=== PATIENT | male | born 1990 | race American Indian/Alaskan Native ===

== ENCOUNTER 2017-04-16 22:19 | Emergency (ER) | payer SELFPAY ==
[2017-04-16 22:42] VITALS: BP 122/75
== END 2017-04-16 23:00 | disposition left against medical advice (07) ==
LOC: ED 22:19
DX: J11.1 Influenza due to unidentified influenza virus with other respiratory manifestations (principal); R73.9 Hyperglycemia, unspecified
CPT/HCPCS: 82962

== ENCOUNTER 2017-05-17 09:32 | Inpatient (IN) | payer OTHER ==
[2017-05-17 10:18] LABS: Basophils % (Auto) 0.3 % (0.0-1.8); Eosinophils % (Auto) 0.1 % (0.0-4.3); Hematocrit 43.5 % (35.5-45.6); Hemoglobin 14.5 gm/dl (11.8-15.2); Lymphocytes # (Auto) 0.7 K/mm3 (1.2-5.4); Lymphocytes % (Auto) 5.8 % (13.4-35.0); Mean Corpuscular HGB Conc 33 % (32-34); Mean Corpuscular Hemoglobin 32 pg (28-32); Mean Corpuscular Volume 95 fl (84-94); Monocytes # (Auto) 0.6 K/mm3 (0.0-0.8); Monocytes % (Auto) 5.8 % (0.0-7.3); Platelet Count 228 K/mm3 (140-440); Red Blood Count 4.59 M/mm3 (3.65-5.03)
[2017-05-17 10:24] LABS: Alanine Aminotransferase 16 units/L (7-56); Albumin 5.2 g/dL (3.9-5); BUN/Creatinine Ratio 14; Blood Urea Nitrogen 10 mg/dL (9-20); Calcium 9.8 mg/dL (8.4-10.2); Hemolysis Index 8
[2017-05-17] MEDS ORDERED: NACL 0.9% 1000 ML 1,000 ML IV ONE ×2 (13:02→14:58)
[2017-05-17] MEDS ORDERED: ZOFRAN IV ONE (13:02)
[2017-05-17] MEDS ORDERED: TORADOL IV ONE (13:02)
--- NOTE | 2017-05-17 13:02 | Emergency Department Report ---
Blank Doc - Documentation Documentation: H and is a 27-year-old -French male whose presenting with nausea vomiting and abdominal pain. Patient snorted cocaine last night stated pain started after that. Patient used cocaine in the past has not had any pain like this. Patient has vomited numerous times. Patient states that the pain is sharp center abdomen with no radiation. Patient is lying on the floor during exam. Patient states 10 out of 10 in severity. Brief physical exam patient is very tender in the abdomen with guarding. Patient also has a blood pressure 100 systolic. Patient removed to the made for IV hydration and CT scan.
[2017-05-17] MEDS ORDERED: PEPCID IV ONE (13:03)
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
--- NOTE | 2017-05-17 16:41 | History and Physical Report ---
Medications and Allergies Allergies Allergy/AdvReac Type Severity Reaction Status Date / Time No Known Allergies Allergy Verified 07/08/13 04:49 Home Medications Medication Instructions Recorded Confirmed Last Taken Type Famotidine [Pepcid] 40 mg PO DAILY #14 tablet 07/08/13 Unknown Rx Hyoscyamine Subl [Levsin Sl 0.125 0.125 mg SL Q4HR PRN #16 tablet 07/08/13 Unknown Rx TAB] Magnesium Citrate [Citrate of 300 ml PO ONCE #1 solution 07/08/13 Unknown Rx Magnesia] Ondansetron [Zofran Odt] 8 mg PO TID #12 tab.rapdis 07/08/13 Unknown Rx HYDROcodone/ACETAMINOPHEN [[place] 1 each PO Q6HR PRN #20 tablet 09/17/14 Unknown Rx 7.5-325 mg TAB] Ibuprofen [Motrin] 800 mg PO Q8H PRN #30 tablet 09/17/14 Unknown Rx Doxycycline Hyclate [Doxycycline 100 mg PO BID #20 tablet 10/12/15 Unknown Rx Hyclate TAB] HYDROcodone/APAP 7.5-325 [[place] 1 each PO Q8HR PRN #14 tablet 10/12/15 Unknown Rx 7.5/325] Sulfamethoxazole/Trimethoprim 1 each PO BID #20 tablet 10/12/15 Unknown Rx [Bactrim DS TAB] Exam - Constitutional Vitals: Temp Pulse Resp BP Pulse Ox 98 F 48 L 16 143/75 99 05/17/17 15:50 05/17/17 15:48 05/17/17 15:51 05/17/17 15:48 05/17/17 15:51 Results - Labs CBC & Chem 7: 05/17/17 09:51 05/17/17 09:51 Labs: Abnormal lab results 05/17/17 05/17/17 05/17/17 Range/Units 09:51 09:51 09:52 WBC 11.2 H (4.5-11.0) K/mm3 MCV 95 H (84-94) fl Lymph % (Auto) 5.8 L (13.4-35.0) % Lymph # 0.7 L (1.2-5.4) K/mm3 Seg Neutrophils % 88.0 H (40.0-70.0) % Seg Neutrophils # 9.9 H (1.8-7.7) K/mm3 Creatinine 0.7 L (0.8-1.5) mg/dL Glucose 163 H (75-100) mg/dL POC Glucose 157 H (70-105) Lactic Acid (0.7-2.0) mmol/L Albumin 5.2 H (3.9-5) g/dL 05/17/17 05/17/17 Range/Units 13:17 16:03 WBC (4.5-11.0) K/mm3 MCV (84-94) fl Lymph % (Auto) (13.4-35.0) % Lymph # (1.2-5.4) K/mm3 Seg Neutrophils % (40.0-70.0) % Seg Neutrophils # (1.8-7.7) K/mm3 Creatinine (0.8-1.5) mg/dL Glucose (75-100) mg/dL POC Glucose (70-105) Lactic Acid 4.80 H* 3.40 H* (0.7-2.0) mmol/L Albumin (3.9-5) g/dL
--- NOTE | 2017-05-17 16:42 | History and Physical Report ---
History of Present Illness Chief complaint: my stomach hurts History of present illness: 27 YO Male with DM, Malnutrition, Nicotine Dependence presents to ED for evaluation. Pt states that he has experienced abdominal pain for the past 1 day , with worsening symptoms over the past 4 hours. Pt states that pain is 10/10, sharp, located in the middle of the abdomen, just above the bellybutton. Pain is associated with nausea and vomiting that began around midnight. Pt acknowledges onset of abdominal pain after ingestion of cocaine. Pt states that he engages in occasional cocaine use, but has never had symptoms prior to this. Pt denies fever, chills, CP, Palpitations, NVD, BRBPR, recent ill contacts, loose stools, shortness of breath, leg swelling, hematuria, urgency, or frequency. Past History Past Medical History: diabetes, other (malnutrition) Past Surgical History: No surgical history, Other (reviewed) Social history: smoking, other (cocaine dependence) Family history: hypertension Medications and Allergies Allergies Allergy/AdvReac Type Severity Reaction Status Date / Time No Known Allergies Allergy Verified 07/08/13 04:49 Home Medications Medication Instructions Recorded Confirmed Last Taken Type No Known Home Medications [No 05/17/17 05/17/17 Unknown History Reported Home Medications] Review of Systems Constitutional: weight loss, no weight gain, no fever, no chills, no sweats Ears, nose, mouth and throat: no ear pain, no ear discharge, no tinnitis, no decreased hearing, no nose pain, no nasal congestion Cardiovascular: no chest pain, no orthopnea, no palpitations, no rapid/ irregular heart beat, no syncope Respiratory: no cough, no cough with sputum, no excessive sputum, no hemoptysis , no shortness of breath Gastrointestinal: abdominal pain, nausea, vomiting, no constipation, no change in bowel habits, no hematemesis, no coffee ground emesis, no BRBPR, no melena, no hematochezia, no loss of appetite, no early satiety Genitourinary Male: no hematuria, no flank pain, no discharge, no urinary frequency, no urinary hesitancy Rectal: no pain, no incontinence, no bleeding Musculoskeletal: no neck stiffness, no neck pain, no shooting arm pain, no arm numbness/tingling, no low back pain Integumentary: no rash, no pruritis, no redness, no sores, no wounds Neurological: no transient paralysis, no paralysis, no weakness, no parathesias , no numbness, no tingling, no seizures Psychiatric: no anxiety, no memory loss, no change in sleep habits, no sleep disturbances, no insomnia, no hypersomnia, no change in appetite Endocrine: no cold intolerance, no heat intolerance, no polyphagia, no excessive thirst, no polydipsia, no polyuria, no nocturia Hematologic/Lymphatic: no easy bruising, no easy bleeding Allergic/Immunologic: no urticaria, no allergic rhinitis, no wheezing Exam - Constitutional Vitals: Temp Pulse Resp BP Pulse Ox 98 F 48 L 16 143/75 99 05/17/17 15:50 05/17/17 15:48 05/17/17 15:51 05/17/17 15:48 05/17/17 15:51 General appearance: Present: mild distress, cachectic, disheveled - EENT Eyes: Present: PERRL ENT: hearing intact, clear oral mucosa - Neck Neck: Present: supple, normal ROM - Respiratory Respiratory effort: normal Respiratory: bilateral: CTA - Cardiovascular Heart Sounds: Present: S1 & S2. Absent: rub, click - Extremities Extremities: pulses symmetrical, No edema Peripheral Pulses: within normal limits - Abdominal General gastrointestinal: Present: soft, tender, non-distended, normal bowel sounds Localized gastrointestinal: tender: diffuse Male genitourinary: Present: normal - Integumentary Integumentary: Present: clear, warm, dry - Musculoskeletal Musculoskeletal: gait normal, strength equal bilaterally - Psychiatric Psychiatric: appropriate mood/affect, intact judgment & insight - Neurologic Neurologic: CNII-XII intact, moves all extremities Results - Labs CBC & Chem 7: 05/17/17 09:51 05/17/17 09:51 Labs: Abnormal lab results 05/17/17 05/17/17 05/17/17 Range/Units 09:51 09:51 09:52 WBC 11.2 H (4.5-11.0) K/mm3 MCV 95 H (84-94) fl Lymph % (Auto) 5.8 L (13.4-35.0) % Lymph # 0.7 L (1.2-5.4) K/mm3 Seg Neutrophils % 88.0 H (40.0-70.0) % Seg Neutrophils # 9.9 H (1.8-7.7) K/mm3 Creatinine 0.7 L (0.8-1.5) mg/dL Glucose 163 H (75-100) mg/dL POC Glucose 157 H (70-105) Lactic Acid (0.7-2.0) mmol/L Albumin 5.2 H (3.9-5) g/dL 05/17/17 05/17/17 Range/Units 13:17 16:03 WBC (4.5-11.0) K/mm3 MCV (84-94) fl Lymph % (Auto) (13.4-35.0) % Lymph # (1.2-5.4) K/mm3 Seg Neutrophils % (40.0-70.0) % Seg Neutrophils # (1.8-7.7) K/mm3 Creatinine (0.8-1.5) mg/dL Glucose (75-100) mg/dL POC Glucose (70-105) Lactic Acid 4.80 H* 3.40 H* (0.7-2.0) mmol/L Albumin (3.9-5) g/dL Assessment and Plan - Patient Problems (1) Mesenteric ischemia Current Visit: Yes Status: Acute Plan to address problem: Serial abdominal exam, IVF resuscitation, serial lactic acid, kub in am to evaluate for free air, repeat CT abdomen pelvis if worsening symptoms, surgery consulted, (2) Cocaine abuse Current Visit: Yes Status: Acute Plan to address problem: Pt counseled, (3) Lactic acidosis Current Visit: Yes Status: Acute Plan to address problem: IVF resuscitation, supportive care, repeat lactic acid level (4) DVT prophylaxis Current Visit: Yes Status: Acute
[2017-05-17] MEDS ORDERED: TYLENOL PO PRN (16:59)
[2017-05-17] MEDS ORDERED: PROVENTIL IH PRN (16:59)
[2017-05-17] MEDS ORDERED: DILAUDID IV ONE ×2 (21:10→23:46)
[2017-05-17] MEDS ORDERED: NACL 0.9% 1000 ML 2,000 ML IV ONE (21:13)
--- NOTE | 2017-05-17 21:26 | Consultation ---
History of Present Illness Consult date: 05/17/17 Reason for consult: abdominal pain Requesting physician: JOSE ANTONIO IGLESIAS Chief complaint: abdominal pain - History of present illness History of present illness: 27-year-old male presents to the emergency department with an acute onset of generalized abdominal pain that began about 10 hours ago after consuming cocaine. He reports that the main pain is around the umbilicus. He has had nausea and vomiting. Does not think that he has had any hematemesis. Had a bowel movement before he came in. He did not have blood or appear black. Nothing similar to this has happened before in the past. Denies feeling bloated. Would like some ice chips. Feels as though he may have had a fever at home but did not actually check his temperature. Past History Past Medical History: diabetes, other (malnutrition) Past Surgical History: No surgical history, Other (reviewed) Social history: smoking, other (cocaine dependence) Family history: no significant family history, hypertension Medications and Allergies Allergies Allergy/AdvReac Type Severity Reaction Status Date / Time No Known Allergies Allergy Verified 07/08/13 04:49 Home Medications Medication Instructions Recorded Confirmed Last Taken Type No Known Home Medications [No 05/17/17 05/17/17 Unknown History Reported Home Medications] Active Meds: Active Medications Acetaminophen (Tylenol) 650 mg PO Q4H PRN PRN Reason: Pain MILD(1-3)/Fever >100.5/SUAZO Albuterol (Proventil) 2.5 mg IH Q4HRT PRN PRN Reason: Shortness Of Breath Doxycycline Hyclate (Vibramycin) 100 mg PO BID REGINA Famotidine (Pepcid) 40 mg PO DAILY REGINA Sodium Chloride (Nacl 0.45% 1000 Ml) 1,000 mls @ 125 mls/hr IV DIRECT REGINA Ondansetron HCl (Zofran) 4 mg IV Q8H PRN PRN Reason: N/V unrelieved by Reglan Review of Systems - Constitutional fever, chills, no sweats, no night sweats - Cardiovascular no chest pain - Respiratory no shortness of breath - Gastrointestinal abdominal pain, nausea, vomiting, no diarrhea, no constipation, no hematemesis, no coffee ground emesis, no BRBPR, no melena, no hematochezia, no dyspepsia/ bloating - Genitourinary no dysuria - Integumentary no rash Exam Vital Signs Temp Pulse Resp BP Pulse Ox 96.1 F L 54 L 20 100/70 98 05/17/17 09:42 05/17/17 09:42 05/17/17 09:42 05/17/17 09:42 05/17/17 09:42 Narrative exam: Patient is awake and alert. Communicates respectfully and appropriately. Appears in obvious pain. Movements are slow. - General physical appearance Positive: moderate distress, severe pain - Eyes Positive: normal occular movement - ENT Positive: other (dry oral mucosa) - Neck Positive: trachea midline - Respiratory Positive: normal expansion, normal respiratory effort, clear to auscultation - Cardiovascular Rhythm: regular - Abdomen Abdomen: Present: soft, bowel sounds normal, guarding (voluntary), other ( patient reports abdominal pain that is referred to the umbilicus. In the periphery, there is no pain where I palpate. He feels the pain at the umbilicus whenever I palpate his abdomen. Reports increased pain with pelvic shake.). Absent: distended, rigid, surgical scars Hernia: none - Integumentary no rash - Neurologic Neurologic: alert and oriented to time, place and person, motor strength and sensation are grossly intact - Psychiatric Psychiatric: appropriate mood/affect, intact judgment & insight, memory intact, cooperative Results - Labs 05/17/17 09:51 05/17/17 09:51 Abnormal lab results 05/17/17 05/17/17 05/17/17 Range/Units 09:51 09:51 09:52 WBC 11.2 H (4.5-11.0) K/mm3 MCV 95 H (84-94) fl Lymph % (Auto) 5.8 L (13.4-35.0) % Lymph # 0.7 L (1.2-5.4) K/mm3 Seg Neutrophils % 88.0 H (40.0-70.0) % Seg Neutrophils # 9.9 H (1.8-7.7) K/mm3 Creatinine 0.7 L (0.8-1.5) mg/dL Glucose 163 H (75-100) mg/dL POC Glucose 157 H (70-105) Lactic Acid (0.7-2.0) mmol/L Albumin 5.2 H (3.9-5) g/dL 05/17/17 05/17/17 Range/Units 13:17 16:03 WBC (4.5-11.0) K/mm3 MCV (84-94) fl Lymph % (Auto) (13.4-35.0) % Lymph # (1.2-5.4) K/mm3 Seg Neutrophils % (40.0-70.0) % Seg Neutrophils # (1.8-7.7) K/mm3 Creatinine (0.8-1.5) mg/dL Glucose (75-100) mg/dL POC Glucose (70-105) Lactic Acid 4.80 H* 3.40 H* (0.7-2.0) mmol/L Albumin (3.9-5) g/dL Diabetes panel 05/17/17 Range/Units 09:51 Sodium 141 (137-145) mmol/L Potassium 3.8 (3.6-5.0) mmol/L Chloride 100.2 (98-107) mmol/L Carbon Dioxide 27 (22-30) mmol/L BUN 10 (9-20) mg/dL Creatinine 0.7 L (0.8-1.5) mg/dL Glucose 163 H (75-100) mg/dL Calcium 9.8 (8.4-10.2) mg/dL AST 23 (5-40) units/L ALT 16 (7-56) units/L Alkaline Phosphatase 115 (35-129) units/L Total Protein 8.2 (6.3-8.2) g/dL Albumin 5.2 H (3.9-5) g/dL Calcium panel 05/17/17 Range/Units 09:51 Calcium 9.8 (8.4-10.2) mg/dL Albumin 5.2 H (3.9-5) g/dL Pituitary panel 05/17/17 Range/Units 09:51 Sodium 141 (137-145) mmol/L Potassium 3.8 (3.6-5.0) mmol/L Chloride 100.2 (98-107) mmol/L Carbon Dioxide 27 (22-30) mmol/L BUN 10 (9-20) mg/dL Creatinine 0.7 L (0.8-1.5) mg/dL Glucose 163 H (75-100) mg/dL Calcium 9.8 (8.4-10.2) mg/dL Adrenal panel 05/17/17 Range/Units 09:51 Sodium 141 (137-145) mmol/L Potassium 3.8 (3.6-5.0) mmol/L Chloride 100.2 (98-107) mmol/L Carbon Dioxide 27 (22-30) mmol/L BUN 10 (9-20) mg/dL Creatinine 0.7 L (0.8-1.5) mg/dL Glucose 163 H (75-100) mg/dL Calcium 9.8 (8.4-10.2) mg/dL Total Bilirubin 0.50 (0.1-1.2) mg/dL AST 23 (5-40) units/L ALT 16 (7-56) units/L Alkaline Phosphatase 115 (35-129) units/L Total Protein 8.2 (6.3-8.2) g/dL Albumin 5.2 H (3.9-5) g/dL - Imaging CT scan - abdomen: report reviewed, image reviewed Assessment and Plan - Patient Problems (1) Mesenteric ischemia Current Visit: Yes Status: Acute Plan to address problem: Patient appears to be hemodynamically stable at this time. I think it is quite likely he is suffering symptoms of mild mesenteric ischemia secondary to dehydration and vasospasm from the cocaine. His abdomen is soft with good bowel sounds. At this time I would recommend aggressive resuscitation. I've ordered another 2 L of normal saline. Serial lactate should be monitored. A new set of labs has been ordered for the morning. I have ordered one dose of pain medicine. Further pain medicine will be deferred to primary team. His lactate is already showing signs of improvement. As long as this continues , I would continue conservative care. If his hemodynamics or labs are getting worse, I have told him then we will move forward with an exploratory laparotomy. He understands. Will follow along. Thank you for this consult. Time=45min (2) Lactic acidosis Current Visit: Yes Status: Acute Plan to address problem: This is starting to improve. We need to be aggressive with resuscitation. I have ordered 2 more liters of normal saline. I've also ordered serial lactate' s.
[2017-05-18] MEDS: VIBRAMYCIN PO SCH ×3 (00:04→23:01)
[2017-05-18] MEDS: ZOFRAN IV PRN ×2 (00:18→11:17)
[2017-05-18] MEDS: NACL 0.45% 1000 ML 1,000 ML IV SCH ×2 (02:22→10:50)
[2017-05-18 06:26] LABS: Basophils # (Auto) 0.1 K/mm3 (0.0-0.1); Basophils % (Auto) 1.7 % (0.0-1.8); Eosinophils % (Auto) 0.1 % (0.0-4.3); Hematocrit 38.5 % (35.5-45.6); Hemoglobin 12.7 gm/dl (11.8-15.2); Lymphocytes # (Auto) 0.8 K/mm3 (1.2-5.4); Lymphocytes % (Auto) 11.7 % (13.4-35.0); Mean Corpuscular HGB Conc 33 % (32-34); Mean Corpuscular Hemoglobin 31 pg (28-32); Mean Corpuscular Volume 95 fl (84-94); Monocytes # (Auto) 0.5 K/mm3 (0.0-0.8); Monocytes % (Auto) 7.2 % (0.0-7.3); Platelet Count 187 K/mm3 (140-440); Red Blood Count 4.04 M/mm3 (3.65-5.03); Red Cell Distribution Width 13.9 % (13.2-15.2)
[2017-05-18 06:57] LABS: Alanine Aminotransferase 14 units/L (7-56); BUN/Creatinine Ratio 20; Blood Urea Nitrogen 10 mg/dL (9-20); Calcium 8.7 mg/dL (8.4-10.2); Hemolysis Index 3
--- NOTE | 2017-05-18 09:10 | XRay Report ---
Abdomen 2 views: History: Abdominal pain. Findings: Multiple air fluid levels are noted in the abdomen. No significant bowel distention. No radiopaque calculus or abnormal calcification. No free intraperitoneal air. Impression: Probable ileus or incomplete small bowel obstruction.
[2017-05-18] MEDS: PEPCID PO SCH (09:23)
[2017-05-18] MEDS ORDERED: NON-FORMULARY (Famotidine [Pepcid] 40 MG) PO SCH (10:00)
--- NOTE | 2017-05-18 12:32 | Progress Note ---
Assessment and Plan - Patient Problems (1) Mesenteric ischemia Current Visit: Yes Status: Acute Plan to address problem: Patient is much improved today. Labs have normalized. Exam is much improved. I do not have any worries of bowel compromise at this time. Advance to clear liquid diet. Thereafter, advanced guide as tolerated. No need to continue serial lactate checks. Explained the process by which he had severe abdominal pain. Explained that it was related to the cocaine use. I encouraged him to ambulate today. Will follow along. Please call if there are any questions Time=15min (2) Lactic acidosis Current Visit: Yes Status: Acute Plan to address problem: Resolved with fluid resuscitation. No need to continue following serial lactate 's. Subjective Date of service: 05/18/17 Patient Reports: Positive: no new complaints, feels better, still having pain ( pain is less than last night.) Objective Vital Signs - 12hr 05/18/17 05/18/17 04:16 08:00 Temperature 98.1 F 97.8 F Pulse Rate 55 L 54 L Respiratory 24 14 Rate Blood Pressure 109/65 100/48 O2 Sat by Pulse 100 96 Oximetry - General physical appearance no distress - Eyes normal occular movement - Respiratory normal expansion, normal respiratory effort - Abdomen soft, tender (much less tender than last night.), bowel sounds normal, not distended, not rebound, not guarding, not rigid - Integumentary no rash - Psychiatric oriented to time, oriented to person, oriented to place, speech is normal, memory intact - Labs 05/18/17 05:50 05/18/17 05:50 Diabetes panel 05/18/17 Range/Units 05:50 Sodium 142 (137-145) mmol/L Potassium 3.8 (3.6-5.0) mmol/L Chloride 105.0 (98-107) mmol/L Carbon Dioxide 25 (22-30) mmol/L BUN 10 (9-20) mg/dL Creatinine 0.5 L (0.8-1.5) mg/dL Glucose 95 (75-100) mg/dL Calcium 8.7 (8.4-10.2) mg/dL AST 19 (5-40) units/L ALT 14 (7-56) units/L Alkaline Phosphatase 77 (35-129) units/L Total Protein 6.3 D (6.3-8.2) g/dL Albumin 4.0 (3.9-5) g/dL Calcium panel 05/18/17 Range/Units 05:50 Calcium 8.7 (8.4-10.2) mg/dL Albumin 4.0 (3.9-5) g/dL Pituitary panel 05/18/17 Range/Units 05:50 Sodium 142 (137-145) mmol/L Potassium 3.8 (3.6-5.0) mmol/L Chloride 105.0 (98-107) mmol/L Carbon Dioxide 25 (22-30) mmol/L BUN 10 (9-20) mg/dL Creatinine 0.5 L (0.8-1.5) mg/dL Glucose 95 (75-100) mg/dL Calcium 8.7 (8.4-10.2) mg/dL Adrenal panel 05/18/17 Range/Units 05:50 Sodium 142 (137-145) mmol/L Potassium 3.8 (3.6-5.0) mmol/L Chloride 105.0 (98-107) mmol/L Carbon Dioxide 25 (22-30) mmol/L BUN 10 (9-20) mg/dL Creatinine 0.5 L (0.8-1.5) mg/dL Glucose 95 (75-100) mg/dL Calcium 8.7 (8.4-10.2) mg/dL Total Bilirubin 0.40 (0.1-1.2) mg/dL AST 19 (5-40) units/L ALT 14 (7-56) units/L Alkaline Phosphatase 77 (35-129) units/L Total Protein 6.3 D (6.3-8.2) g/dL Albumin 4.0 (3.9-5) g/dL - Imaging Abdominal x-ray: report reviewed, image reviewed
[2017-05-18] MEDS ORDERED: PERCOCET 5/325 PO PRN (13:11)
--- NOTE | 2017-05-18 17:50 | Progress Note ---
Assessment and Plan Assessment and plan: --Mesenteric ischemia; Symptoms significantly improved, surgeries following Started on clear liquids, IV fluids and pain medications and supportive care Ambulate as tolerated --Lactic acidosis; resolved with IV hydration, continue supportive care --Cocaine abuse; counseling and patient strongly advised to quit recreational drug use --Ongoing tobacco use; smoking cessation counseling done, advised nicotine patch as needed --DVT prophylaxis with Lovenox Closely monitor the patient and adjust management as needed Possible discharge in 1-2 days if stable History Interval history: Patient seen and examined medical records reviewed Patient complains of severe abdominal pain Surgery has evaluated the patient Advised clear liquids which patient is tolerating Denies nausea vomiting Alert awake oriented 3 not in acute distress Vital signs reviewed Hospitalist Physical - Constitutional Vitals: Temp Pulse Resp BP Pulse Ox 98.2 F 54 L 14 124/69 96 05/18/17 15:20 05/18/17 08:00 05/18/17 15:20 05/18/17 15:20 05/18/17 08:00 General appearance: Present: no acute distress, cachectic, disheveled - EENT Eyes: Present: PERRL, EOM intact - Neck Neck: Present: supple, normal ROM - Respiratory Respiratory effort: normal Respiratory: bilateral: diminished, negative: rales, rhonchi - Cardiovascular Rhythm: regular Heart Sounds: Present: S1 & S2 - Extremities Extremities: no ischemia, No edema - Abdominal General gastrointestinal: soft, non-tender, non-distended, normal bowel sounds - Integumentary Integumentary: Present: clear, warm - Psychiatric Psychiatric: appropriate mood/affect, cooperative - Neurologic Neurologic: CNII-XII intact, moves all extremities Results - Labs CBC & Chem 7: 05/18/17 05:50 05/18/17 05:50 Labs: Laboratory Last Values WBC 6.8 K/mm3 (4.5-11.0) 05/18/17 05:50 RBC 4.04 M/mm3 (3.65-5.03) 05/18/17 05:50 Hgb 12.7 gm/dl (11.8-15.2) 05/18/17 05:50 Hct 38.5 % (35.5-45.6) 05/18/17 05:50 MCV 95 fl (84-94) H 05/18/17 05:50 MCH 31 pg (28-32) 05/18/17 05:50 MCHC 33 % (32-34) 05/18/17 05:50 RDW 13.9 % (13.2-15.2) 05/18/17 05:50 Plt Count 187 K/mm3 (140-440) 05/18/17 05:50 Lymph % (Auto) 11.7 % (13.4-35.0) L 05/18/17 05:50 [place] % (Auto) 7.2 % (0.0-7.3) 05/18/17 05:50 Eos % (Auto) 0.1 % (0.0-4.3) 05/18/17 05:50 Baso % (Auto) 1.7 % (0.0-1.8) 05/18/17 05:50 Lymph # 0.8 K/mm3 (1.2-5.4) L 05/18/17 05:50 [place] # 0.5 K/mm3 (0.0-0.8) 05/18/17 05:50 Eos # 0.0 K/mm3 (0.0-0.4) 05/18/17 05:50 Baso # 0.1 K/mm3 (0.0-0.1) 05/18/17 05:50 Seg Neutrophils % 79.3 % (40.0-70.0) H 05/18/17 05:50 Seg Neutrophils # 5.4 K/mm3 (1.8-7.7) 05/18/17 05:50 Sodium 142 mmol/L (137-145) 05/18/17 05:50 Potassium 3.8 mmol/L (3.6-5.0) 05/18/17 05:50 Chloride 105.0 mmol/L (98-107) 05/18/17 05:50 Carbon Dioxide 25 mmol/L (22-30) 05/18/17 05:50 Anion Gap 16 mmol/L 05/18/17 05:50 BUN 10 mg/dL (9-20) 05/18/17 05:50 Creatinine 0.5 mg/dL (0.8-1.5) L 05/18/17 05:50 Estimated GFR > 60 ml/min 05/18/17 05:50 BUN/Creatinine Ratio 20 % 05/18/17 05:50 Glucose 95 mg/dL (75-100) 05/18/17 05:50 POC Glucose 157 (70-105) H 05/17/17 09:52 Lactic Acid 1.60 mmol/L (0.7-2.0) 05/18/17 11:51 Calcium 8.7 mg/dL (8.4-10.2) 05/18/17 05:50 Total Bilirubin 0.40 mg/dL (0.1-1.2) 05/18/17 05:50 AST 19 units/L (5-40) 05/18/17 05:50 ALT 14 units/L (7-56) 05/18/17 05:50 Alkaline Phosphatase 77 units/L (35-129) 05/18/17 05:50 Total Creatine Kinase 162 units/L (55-170) 05/17/17 09:51 Total Protein 6.3 g/dL (6.3-8.2) D 05/18/17 05:50 Albumin 4.0 g/dL (3.9-5) 05/18/17 05:50 Albumin/Globulin Ratio 1.7 % 05/18/17 05:50
[2017-05-19] MEDS: PEPCID PO SCH (09:46)
[2017-05-19] MEDS: VIBRAMYCIN PO SCH ×2 (09:46→21:35)
--- NOTE | 2017-05-19 16:07 | Progress Note ---
Assessment and Plan 27 yo M with mesenteric ischemia secondary to cocaine use. 1. adv diet as tolerated 2. PRN nausea control 3. dc IVF once tolerating diet 4. no surgical intervention at this time. Please call if there are any questions. Subjective Date of service: 05/19/17 Narrative: Pt seen and examined. No overnight events. c/o Nausea and no appetite. Tolerating clear liquids. No abd pain. +Flatus. Objective Vital Signs - 12hr 05/19/17 05/19/17 05/19/17 07:31 12:56 13:06 Temperature 98.5 F 98.5 F Pulse Rate 43 L Respiratory 14 14 Rate Blood Pressure 124/59 126/78 O2 Sat by Pulse 99 98 Oximetry - General physical appearance Narrative Exam: Gen: AAOx3. NAD Abd: soft, NT, ND. no r/r/g - Labs 05/18/17 05:50 05/18/17 05:50
--- NOTE | 2017-05-19 18:46 | Progress Note ---
Assessment and Plan Assessment and plan: --Mesenteric ischemia; Symptoms significantly improved, surgery following Started on clear liquids, advance the diet as tolerated DC IV fluids and reduce pain medications , Ambulate as tolerated --Lactic acidosis; resolved with IV hydration, continue supportive care --Cocaine abuse; counseling and patient strongly advised to quit recreational drug use --Ongoing tobacco use; smoking cessation counseling done, advised nicotine patch as needed --DVT prophylaxis with Lovenox Ambulate as tolerated If patient can tolerated the form may be discharged home tomorrow Plan of care reviewed with the patient and his nurse History Interval history: Patient seen and examined medical records reviewed Complaints of abdominal pain, significantly improved since admission Mild nausea, unclear liquid diet Alert awake oriented 3 Vital signs reviewed Hospitalist Physical - Constitutional Vitals: Temp Pulse Resp BP Pulse Ox 97.7 F 43 L 14 139/85 98 05/19/17 15:35 05/19/17 07:31 05/19/17 15:35 05/19/17 15:35 05/19/17 12:56 General appearance: Present: no acute distress, disheveled - EENT Eyes: Present: PERRL, EOM intact - Neck Neck: Present: supple, normal ROM - Respiratory Respiratory effort: normal Respiratory: negative: rales, rhonchi, wheezing - Cardiovascular Rhythm: regular Heart Sounds: Present: S1 & S2 - Extremities Extremities: no ischemia, No edema - Abdominal General gastrointestinal: soft, non-tender, tender (no guarding no rigidity), normal bowel sounds - Integumentary Integumentary: Present: clear, warm - Psychiatric Psychiatric: appropriate mood/affect, cooperative - Neurologic Neurologic: CNII-XII intact, moves all extremities Results - Labs CBC & Chem 7: 05/18/17 05:50 05/18/17 05:50 Labs: Laboratory Last Values WBC 6.8 K/mm3 (4.5-11.0) 05/18/17 05:50 RBC 4.04 M/mm3 (3.65-5.03) 05/18/17 05:50 Hgb 12.7 gm/dl (11.8-15.2) 05/18/17 05:50 Hct 38.5 % (35.5-45.6) 05/18/17 05:50 MCV 95 fl (84-94) H 05/18/17 05:50 MCH 31 pg (28-32) 05/18/17 05:50 MCHC 33 % (32-34) 05/18/17 05:50 RDW 13.9 % (13.2-15.2) 05/18/17 05:50 Plt Count 187 K/mm3 (140-440) 05/18/17 05:50 Lymph % (Auto) 11.7 % (13.4-35.0) L 05/18/17 05:50 [place] % (Auto) 7.2 % (0.0-7.3) 05/18/17 05:50 Eos % (Auto) 0.1 % (0.0-4.3) 05/18/17 05:50 Baso % (Auto) 1.7 % (0.0-1.8) 05/18/17 05:50 Lymph # 0.8 K/mm3 (1.2-5.4) L 05/18/17 05:50 [place] # 0.5 K/mm3 (0.0-0.8) 05/18/17 05:50 Eos # 0.0 K/mm3 (0.0-0.4) 05/18/17 05:50 Baso # 0.1 K/mm3 (0.0-0.1) 05/18/17 05:50 Seg Neutrophils % 79.3 % (40.0-70.0) H 05/18/17 05:50 Seg Neutrophils # 5.4 K/mm3 (1.8-7.7) 05/18/17 05:50 Sodium 142 mmol/L (137-145) 05/18/17 05:50 Potassium 3.8 mmol/L (3.6-5.0) 05/18/17 05:50 Chloride 105.0 mmol/L (98-107) 05/18/17 05:50 Carbon Dioxide 25 mmol/L (22-30) 05/18/17 05:50 Anion Gap 16 mmol/L 05/18/17 05:50 BUN 10 mg/dL (9-20) 05/18/17 05:50 Creatinine 0.5 mg/dL (0.8-1.5) L 05/18/17 05:50 Estimated GFR > 60 ml/min 05/18/17 05:50 BUN/Creatinine Ratio 20 % 05/18/17 05:50 Glucose 95 mg/dL (75-100) 05/18/17 05:50 POC Glucose 157 (70-105) H 05/17/17 09:52 Lactic Acid 1.60 mmol/L (0.7-2.0) 05/18/17 11:51 Calcium 8.7 mg/dL (8.4-10.2) 05/18/17 05:50 Total Bilirubin 0.40 mg/dL (0.1-1.2) 05/18/17 05:50 AST 19 units/L (5-40) 05/18/17 05:50 ALT 14 units/L (7-56) 05/18/17 05:50 Alkaline Phosphatase 77 units/L (35-129) 05/18/17 05:50 Total Creatine Kinase 162 units/L (55-170) 05/17/17 09:51 Total Protein 6.3 g/dL (6.3-8.2) D 05/18/17 05:50 Albumin 4.0 g/dL (3.9-5) 05/18/17 05:50 Albumin/Globulin Ratio 1.7 % 05/18/17 05:50
[2017-05-19] MEDS ORDERED: PERCOCET 5/325 PO PRN (18:50)
[2017-05-19] MEDS: ZOFRAN IV PRN (19:06)
--- NOTE | 2017-05-20 08:15 | Discharge Summary ---
Providers - Providers Date of Admission: 05/17/17 16:59 Date of discharge: 05/20/17 Attending physician: EVY REAGAN 05/17/17 20:20 Consult to Physician [CONS] Routine Consulting Provider: XANDER VALLEJO Reason For Exam: mesenteric ischemia s/p cocaine use Place consult to:: DR. 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 Reason for admission: abdominal pain/nausea vomiting Condition: Fair Pertinent studies: CT abdomen and pelvis; moderate fluid in the distal small bowel loops and proximal colon consistent with gastroenteritis no acute inflammation process noted Abdominal x-ray; probable ileus of incomplete small bowel obstruction Hospital course: 27-year-old -[place] male patient with significant history of type 2 diabetes mellitus malnutrition ongoing tobacco use was admitted through emergency room with abdominal pain, nausea vomiting Initial workup is consistent with gastroenteritis and possibly ileus Admitted symptomatically managed Subsequently evaluated by surgery, managed for ischemic colitis Visit nothing by mouth status and supportive care initially Later, started clear liquids and advance the diet as tolerated . Patient's symptoms significantly improved Also has history of cocaine abuse; counseling done patient strongly advised to quit recreational drug use Also counseled smoking cessation and advised nicotine patch if needed Today patient is tolerating soft diet, denies any abdominal pain no nausea vomiting Vital signs stable [id number] evaluation physical examination done by me prior to discharge is unremarkable Cleared by surgery for discharge and follow up with them as needed Patient is hemodynamically and clinically stable at discharge Discharge diagnosis; --Mesenteric ischemia; resolved --Lactic acidosis; resolved --Cocaine abuse; counseling done --Ongoing tobacco use; smoking cessation counseling Disposition: DC-01 TO HOME OR SELFCARE Time spent for discharge: 32 min Core Measure Documentation - Palliative Care Palliative Care/ Comfort Measures: Not Applicable - Core Measures Any of the following diagnoses?: none Exam - Constitutional Vitals: Temp Pulse Resp BP Pulse Ox 98.7 F 50 L 20 136/86 100 05/20/17 07:48 05/20/17 07:48 05/20/17 07:48 05/20/17 07:48 05/20/17 07:48 General appearance: Present: no acute distress, well-nourished - EENT Eyes: Present: PERRL, EOM intact - Neck Neck: Present: supple, normal ROM - Respiratory Respiratory effort: normal Respiratory: negative: rales, rhonchi, wheezing - Cardiovascular Rhythm: regular Heart Sounds: Present: S1 & S2 - Extremities Extremities: no ischemia, No edema - Abdominal General gastrointestinal: Present: soft, non-tender, non-distended, normal bowel sounds - Integumentary Integumentary: Present: clear, warm - Musculoskeletal Musculoskeletal: strength equal bilaterally - Psychiatric Psychiatric: appropriate mood/affect, cooperative - Neurologic Neurologic: CNII-XII intact, moves all extremities Plan Activity: no restrictions Diet: advance as tolerated, other (soft diet) Additional Instructions: Advised to quit recreational drug use. Smoking cessation counseling done Follow up with: PRIMARY CARE, [Primary Care Provider] - 3-5 Days DORITA REID DO [Staff Physician] - 7 Days Prescriptions: Dicyclomine [Bentyl] 10 mg PO TID PRN #15 capsule PRN Reason: Pain Famotidine [Pepcid] 10 mg PO BID #30 tablet
[2017-05-20] MEDS: VIBRAMYCIN PO SCH (11:04)
[2017-05-20] MEDS: PEPCID PO SCH (11:05)
[2017-05-20 16:29] VITALS: BP 149/89
== END 2017-05-20 18:00 | disposition home or self-care (01) | DRG 394 ==
LOC: ED 09:32 → 3A 16:59
PROVIDERS: ADMIT Internal Medicine; ATTEND Internal Medicine
DX: K55.039 Acute (reversible) ischemia of large intestine, extent unspecified (principal); F14.20 Cocaine dependence, uncomplicated; E87.2 Acidosis; Z71.51 Drug abuse counseling and surveillance of drug abuser; Z71.6 Tobacco abuse counseling; E11.9 Type 2 diabetes mellitus without complications; F17.200 Nicotine dependence, unspecified, uncomplicated; Z82.49 Family history of ischemic heart disease and other diseases of the circulatory system
CPT/HCPCS: 36415; 74019; 74177; 80053; 82140; 82550; 82962; 85025; 96374; 96375; 99406; J1170; J1885; J2405; J7030; Q9967

== ENCOUNTER 2017-06-27 19:19 | Inpatient (IN) | payer SELFPAY ==
[2017-06-27] MEDS ORDERED: NACL 0.9% 1000 ML 1,000 ML IV ONE (22:19)
[2017-06-27 22:45] LABS: Basophils % (Auto) 0.2 % (0.0-1.8); Hematocrit 46.6 % (35.5-45.6); Hemoglobin 15.4 gm/dl (11.8-15.2); Lymphocytes # (Auto) 0.8 K/mm3 (1.2-5.4); Lymphocytes % (Auto) 6.2 % (13.4-35.0); Mean Corpuscular HGB Conc 33 % (32-34); Mean Corpuscular Hemoglobin 32 pg (28-32); Mean Corpuscular Volume 96 fl (84-94); Monocytes # (Auto) 0.5 K/mm3 (0.0-0.8); Platelet Count 223 K/mm3 (140-440); Red Blood Count 4.84 M/mm3 (3.65-5.03)
[2017-06-27 23:06] LABS: Alanine Aminotransferase 21 units/L (7-56); Albumin 4.7 g/dL (3.9-5); BUN/Creatinine Ratio 13; Blood Urea Nitrogen 8 mg/dL (9-20); Calcium 9.3 mg/dL (8.4-10.2); Hemolysis Index 15
[2017-06-28] MEDS ORDERED: ZOFRAN IV ONE (05:56)
[2017-06-28] MEDS ORDERED: ZOFRAN ONE (05:57)
[2017-06-28] MEDS ORDERED: NACL 0.9% 1000 ML 1,000 ML IV ONE ×3 (06:25→08:04)
[2017-06-28] MEDS ORDERED: BENADRYL IV ONE (06:40)
[2017-06-28] MEDS ORDERED: MORPHINE IV ONE (06:40)
[2017-06-28] MEDS ORDERED: REGLAN IV ONE (06:40)
[2017-06-28] MEDS ORDERED: PEPCID IV ONE (06:40)
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
[2017-06-28 06:57] LABS: Lipase 14 units/L (13-60)
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
[2017-06-28 09:01] LABS: Bilirubin,Urine NEG (Negative); Blood,Urine NEG (Negative); Color,Urine Straw (Yellow); Mucus,Urine FEW /HPF; Protein,Urine <15 mg/dL mg/dL (Negative); RBC,Urine < 1.0 /HPF (0.0-6.0); Urobilinogen,Urine < 2.0 mg/dL (<2.0); WBC,Urine < 1.0 /HPF (0.0-6.0)
[2017-06-28 09:11] LABS: Amphetamine Screen,Urine PRESUMPTIVE NEGATIVE; Benzodiazepines Screen,Urine PRESUMPTIVE NEGATIVE; Cocaine Screen,Urine PRESUMPTIVE NEGATIVE; Methadone Screen,Urine PRESUMPTIVE NEGATIVE; Opiate Screen,Urine PRESUMPTIVE NEGATIVE
[2017-06-28 09:48] LABS: Cannabinoid Screen,Urine PRESUMPTIVE POSITIVE
[2017-06-28] MEDS ORDERED: REGLAN IV PRN (10:32)
[2017-06-28] MEDS ORDERED: TYLENOL PO PRN (10:32)
[2017-06-28] MEDS ORDERED: D50W (25GM) Syringe IV PRN (10:36)
--- NOTE | 2017-06-28 10:44 | History and Physical Report ---
History of Present Illness Date of examination: 06/28/17 Date of admission: 06/28/17 10:01 Chief complaint: Stomachache, constant vomiting History of present illness: Patient is a 27-year-old man with a history of type 2 diabetes mellitus, noncompliant with medications due to lack of insurance, cocaine abuse and tobacco dependency who presents with severe constant sharp epigastric pains, radiating through right upper and left upper abdomen area associated with worsening constant nausea and vomiting for last 2 days. He does have dizziness but no severe headaches or loss of consciousness. He denies any aggravating or relieving factors. He has hiccups. He denies any fevers chills chest pain shortness of breath. He was discharged on 05/20/2017 with similar complaints and it was believed symptoms due to mesenteric ischemia for cocaine abuse. Patient has stopped since that time. He doesn't have a primary care provider and is not taking anything for his diabetes mellitus. Dr. Marina, General Surgeon, contacted because he saw patient before. CT abd/pelvis with IV contrast CONCLUSION: No acute significant CT abnormality with various incidental findings as slight cardiomegaly, minimal nonspecific pericholecystic fluid and few pelvic fluid containing small bowel loops though not abnormally distended and less prominent since the prior exam, as detailed above. Please also correlate clinically. Thank you for the opportunity to participate in this patient's care. PMH: as HPI PSH: He denies SH: positive for smoking cigarettes, stopped powdered cocaine, denies etoh FH: Father has htn, dm ROS: Constitutional: denies: fever ENT: denies: throat or neck pain Respiratory: denies: cough, shortness of breath Cardiovascular: denies: chest pain Endocrine: Positive unexplained weight loss Gastrointestinal: Positive abdominal pain, nausea Genitourinary: Positive polyuria Rectal: denies no incontinence, no bleeding, no itching, no discharge Musculoskeletal: denies swelling, myaglia, positive muscle weakness Skin: denies: rash Neurological: denies: headache Hematological/Lymphatic: denies: easy bleeding or easy bruising Allergic/Immunologic: no urticaria, no allergic rhinitis, no anaphylaxis Psych: denies sadness or hopelessness, SI/HI Medications and Allergies Allergies Allergy/AdvReac Type Severity Reaction Status Date / Time No Known Allergies Allergy Verified 07/08/13 04:49 Home Medications Medication Instructions Recorded Confirmed Last Taken Type No Known Home Medications [No 06/28/17 06/28/17 Unknown History Reported Home Medications] Active Meds: Active Medications Acetaminophen (Tylenol) 325 mg PO Q6H PRN PRN Reason: Pain, Mild (1-3) Dextrose (D50w (25gm) Syringe) 50 ml IV PRN PRN PRN Reason: Hypoglycemia Heparin Sodium (Porcine) (Heparin) 5,000 unit SUB-Q Q12HR REGINA Sodium Chloride (Nacl 0.9% 1000 Ml) 1,000 mls @ 100 mls/hr IV DIRECT REGINA Insulin Human Lispro (Humalog) 0 unit SUB-Q Q6HR REGINA; Protocol Metoclopramide HCl (Reglan) 10 mg IV Q8H PRN PRN Reason: Nausea And Vomiting Ondansetron HCl (Zofran) 4 mg IV Q4H PRN PRN Reason: N/V unrelieved by Reglan Pantoprazole Sodium (Protonix) 40 mg IV QDAY REGINA Exam - Physical Exam Narrative exam: GEN: Thin and frail BMI 17 ill-appearing NAD, AWAKE, ALERT, ORIENTATED 3 HEENT: NCAT, EOMI, PERRL, OP Clear, tobacco/cocaine stain of the teeth NECK: supple, no adenopathy, no thyromegaly, no JVD CVS/HEART: RRR, NORMAL S1S2, pulses present bilaterally CHEST/LUNGS: CTA B, Symmetrical chest expansion, good air entry bilaterally GI/Abdomen: soft, epigastric abdominal pain, nondistended good bowel sounds, no guarding or rebound /Bladder: no suprapubic tenderness, no CVA or paraspinal tenderness EXT/Skin: no c/c/e, no obvious rash, capillary Refills 2 seconds, mucous membranes dry, multiple facial tattoo MSK: FROM x 4 Neuro: CN 2-12 grossly intact, no new focal deficits Psych: calm - Constitutional Vitals: Temp Pulse Resp BP Pulse Ox 97.4 F L 67 16 122/79 96 06/28/17 05:50 06/28/17 05:50 06/28/17 07:27 06/28/17 10:00 06/28/17 10:00 Results - Labs CBC & Chem 7: 06/27/17 22:30 06/27/17 22:30 Labs: Abnormal lab results 06/27/17 06/27/17 06/27/17 Range/Units 22:19 22:30 22:30 WBC 12.8 H (4.5-11.0) K/mm3 Hgb 15.4 H (11.8-15.2) gm/dl Hct 46.6 H (35.5-45.6) % MCV 96 H (84-94) fl Lymph % (Auto) 6.2 L (13.4-35.0) % Lymph # 0.8 L (1.2-5.4) K/mm3 Seg Neutrophils % 89.6 H (40.0-70.0) % Seg Neutrophils # 11.5 H (1.8-7.7) K/mm3 BUN 8 L (9-20) mg/dL Creatinine 0.6 L (0.8-1.5) mg/dL Glucose 134 H (75-100) mg/dL POC Glucose 124 H (70-105) Lactic Acid (0.7-2.0) mmol/L Ur Specific [place] (1.003-1.030) 06/28/17 06/28/17 Range/Units 07:40 08:42 WBC (4.5-11.0) K/mm3 Hgb (11.8-15.2) gm/dl Hct (35.5-45.6) % MCV (84-94) fl Lymph % (Auto) (13.4-35.0) % Lymph # (1.2-5.4) K/mm3 Seg Neutrophils % (40.0-70.0) % Seg Neutrophils # (1.8-7.7) K/mm3 BUN (9-20) mg/dL Creatinine (0.8-1.5) mg/dL Glucose (75-100) mg/dL POC Glucose (70-105) Lactic Acid 3.60 H* (0.7-2.0) mmol/L Ur Specific [place] 1.038 H (1.003-1.030) Assessment and Plan Patient is a 27-year-old man with a history of type 2 diabetes mellitus, noncompliant with medications due to lack of insurance, cocaine abuse and tobacco dependency who presents with severe constant sharp epigastric pains, radiating through right upper and left upper abdomen area associated with worsening constant nausea and vomiting for last 2 days. He does have dizziness but no severe headaches or loss of consciousness. He denies any aggravating or relieving factors. He has hiccups. He denies any fevers chills chest pain shortness of breath. He was discharged on 05/20/2017 with similar complaints and it was believed symptoms due to mesenteric ischemia for cocaine abuse. Patient has stopped since that time. He doesn't have a primary care provider and is not taking anything for his diabetes mellitus. Dr. Marina, General Surgeon, contacted because he saw patient before. CT abd/pelvis with IV contrast CONCLUSION: No acute significant CT abnormality with various incidental findings as slight cardiomegaly, minimal nonspecific pericholecystic fluid and few pelvic fluid containing small bowel loops though not abnormally distended and less prominent since the prior exam, as detailed above. Please also correlate clinically. Thank you for the opportunity to participate in this patient's care. -Abdominal pains with intractable nausea and vomiting most likely gastroparesis vs AGE: Consulted GI, treat with antiemetics and IV hydration until able to tolerate po intake -Lactic acidosis, corrected with IV fluids -Leukocytosis mostly likely reactive, related to gastoenteritis: will monitor closely -Moderate malnutrition: consult Chemical Tester -Tobacco dependancy: health counselor on stopping -Cocaine abuse: health counselor done -DVT prophylaxis: sq heparin full code Disposition: admit to medical floor for severe dehydration and inability to tolerated po intake. Most likely with need inpatient GI workup
[2017-06-28] MEDS ORDERED: NACL 0.9% 1000 ML 1,000 ML IV SCH (11:00)
[2017-06-28] MEDS ORDERED: PROTONIX IV SCH ×2 (11:00→13:00)
--- NOTE | 2017-06-28 11:47 | Consultation ---
History of Present Illness Consult date: 06/28/17 Reason for consult: abdominal pain Requesting physician: TEO CASTANEDA Chief complaint: Abdominal pain for 2 days - History of present illness History of present illness: 27-year-old male who is well-known to our service as we saw him during his last mission about 1 month ago for abdominal pain. He returns with a two-day history of epigastric pain. Denies using any cocaine or any other drugs besides marijuana. Denies any NSAIDs. Does report that he had some heartburn 2 days ago. Patient had nausea and vomiting. Vomitus was yellow and green. Denies any blood. Denies any coffee ground emesis. Denies any bright red blood per rectum. Denies any black, tarry stools. Last bowel movement was 4 days ago. Patient's abdominal pain is better now after having received fluids over night and this morning. Patient was not drinking or eating very much over the last 2 days. Patient feels better and would like to drink some liquids now. Past History Past Medical History: diabetes Past Surgical History: No surgical history Social history: single, other (marijuana use). denies: alcohol abuse Family history: hypertension Medications and Allergies Allergies Allergy/AdvReac Type Severity Reaction Status Date / Time No Known Allergies Allergy Verified 07/08/13 04:49 Home Medications Medication Instructions Recorded Confirmed Last Taken Type No Known Home Medications [No 06/28/17 06/28/17 Unknown History Reported Home Medications] Active Meds: Active Medications Acetaminophen (Tylenol) 325 mg PO Q6H PRN PRN Reason: Pain, Mild (1-3) Dextrose (D50w (25gm) Syringe) 50 ml IV PRN PRN PRN Reason: Hypoglycemia Famotidine (Pepcid) 20 mg IV BID [facility] Heparin Sodium (Porcine) (Heparin) 5,000 unit SUB-Q Q12HR [facility] Sodium Chloride (Nacl 0.9% 1000 Ml) 1,000 mls @ 100 mls/hr IV DIRECT [facility] Insulin Human Lispro (Humalog) 0 unit SUB-Q Q6HR [facility]; Protocol Metoclopramide HCl (Reglan) 10 mg IV Q8H PRN PRN Reason: Nausea And Vomiting Ondansetron HCl (Zofran) 4 mg IV Q4H PRN PRN Reason: N/V unrelieved by Reglan Review of Systems - Constitutional no weight loss, no fever, no chills, no chronic pain - Cardiovascular no chest pain - Respiratory no cough - Gastrointestinal abdominal pain, nausea, vomiting, constipation, heartburn, no diarrhea, no hematemesis, no coffee ground emesis, no BRBPR, no melena, no hematochezia - Muskuloskeletal no low back pain - Integumentary no rash, no wounds Exam Vital Signs Temp Pulse BP Pulse Ox 97.4 F L 40 L 135/60 100 06/27/17 22:16 06/27/17 22:16 06/27/17 22:16 06/27/17 22:16 - General physical appearance Positive: no distress, no pain, other (patient was found sleeping on his stomach.) - Eyes Positive: normal occular movement - Respiratory Positive: normal expansion, normal respiratory effort - Cardiovascular Rhythm: regular - Abdomen Abdomen: Present: soft, tender (mild in epigastric area.), bowel sounds normal. Absent: distended, guarding, rigid, wound, surgical scars - Integumentary no rash - Neurologic Neurologic: alert and oriented to time, place and person, motor strength and sensation are grossly intact - Psychiatric Psychiatric: appropriate mood/affect, intact judgment & insight, memory intact, cooperative Results - Labs 06/27/17 22:30 06/27/17 22:30 Abnormal lab results 06/27/17 06/27/17 06/27/17 Range/Units 22:19 22:30 22:30 WBC 12.8 H (4.5-11.0) K/mm3 Hgb 15.4 H (11.8-15.2) gm/dl Hct 46.6 H (35.5-45.6) % MCV 96 H (84-94) fl Lymph % (Auto) 6.2 L (13.4-35.0) % Lymph # 0.8 L (1.2-5.4) K/mm3 Seg Neutrophils % 89.6 H (40.0-70.0) % Seg Neutrophils # 11.5 H (1.8-7.7) K/mm3 BUN 8 L (9-20) mg/dL Creatinine 0.6 L (0.8-1.5) mg/dL Glucose 134 H (75-100) mg/dL POC Glucose 124 H (70-105) Lactic Acid (0.7-2.0) mmol/L Ur Specific [place] (1.003-1.030) 06/28/17 06/28/17 Range/Units 07:40 08:42 WBC (4.5-11.0) K/mm3 Hgb (11.8-15.2) gm/dl Hct (35.5-45.6) % MCV (84-94) fl Lymph % (Auto) (13.4-35.0) % Lymph # (1.2-5.4) K/mm3 Seg Neutrophils % (40.0-70.0) % Seg Neutrophils # (1.8-7.7) K/mm3 BUN (9-20) mg/dL Creatinine (0.8-1.5) mg/dL Glucose (75-100) mg/dL POC Glucose (70-105) Lactic Acid 3.60 H* (0.7-2.0) mmol/L Ur Specific [place] 1.038 H (1.003-1.030) Diabetes panel 06/27/17 Range/Units 22:30 Sodium 141 (137-145) mmol/L Potassium 4.0 (3.6-5.0) mmol/L Chloride 100.0 (98-107) mmol/L Carbon Dioxide 22 (22-30) mmol/L BUN 8 L (9-20) mg/dL Creatinine 0.6 L (0.8-1.5) mg/dL Glucose 134 H (75-100) mg/dL Calcium 9.3 (8.4-10.2) mg/dL AST 28 (5-40) units/L ALT 21 (7-56) units/L Alkaline Phosphatase 106 (35-129) units/L Total Protein 7.7 (6.3-8.2) g/dL Albumin 4.7 (3.9-5) g/dL Calcium panel 06/27/17 Range/Units 22:30 Calcium 9.3 (8.4-10.2) mg/dL Albumin 4.7 (3.9-5) g/dL Pituitary panel 06/27/17 Range/Units 22:30 Sodium 141 (137-145) mmol/L Potassium 4.0 (3.6-5.0) mmol/L Chloride 100.0 (98-107) mmol/L Carbon Dioxide 22 (22-30) mmol/L BUN 8 L (9-20) mg/dL Creatinine 0.6 L (0.8-1.5) mg/dL Glucose 134 H (75-100) mg/dL Calcium 9.3 (8.4-10.2) mg/dL Adrenal panel 06/27/17 Range/Units 22:30 Sodium 141 (137-145) mmol/L Potassium 4.0 (3.6-5.0) mmol/L Chloride 100.0 (98-107) mmol/L Carbon Dioxide 22 (22-30) mmol/L BUN 8 L (9-20) mg/dL Creatinine 0.6 L (0.8-1.5) mg/dL Glucose 134 H (75-100) mg/dL Calcium 9.3 (8.4-10.2) mg/dL Total Bilirubin 0.50 (0.1-1.2) mg/dL AST 28 (5-40) units/L ALT 21 (7-56) units/L Alkaline Phosphatase 106 (35-129) units/L Total Protein 7.7 (6.3-8.2) g/dL Albumin 4.7 (3.9-5) g/dL - Imaging CT scan - abdomen: report reviewed, image reviewed Assessment and Plan - Patient Problems (1) Intractable abdominal pain Current Visit: Yes Status: Acute Plan to address problem: Patient is stable. He is feeling better now after being resuscitated. There are no concerning findings on CT scan. Exam is not concerning. Patient does not have an acute abdomen. Patient denies any drug use that may have contributed to this acute abdominal pain. He may have some component of peptic ulcer disease. No surgery is indicated at this time. Recommend: 1) IVF Fluids 2) Clear Liquid Diet 3) d/c lactates 4) d/c home when tolerating clears and pain is minimal Please call with any questions. Time=45min
[2017-06-28] MEDS: HumaLOG SUB-Q SCH ×2 (11:58→20:13)
--- NOTE | 2017-06-28 12:29 | Gastroenterology Consultation ---
History of Present Illness - Reason for Consult Consult date: 06/28/17 N/V, abd pain Requesting physician: TIP DUCKWORTH - History of Present Illness Patient is a 27 y/o male with PMH of DM, medication noncompliance, substance abuse (cocaine and daily maijuana use), and tobacco dependency who presented to ED with c/o epigastric pain with associated N/V x [address] negative for any acute process. He was admitted approximately 1 month ago for similar symptoms and it was believed symptoms were possibly due to mesenteric ischemia from cocaine abuse which pt states he has stopped since that time. This afternoon pt was resting in bed w/o acute distress. He report epigastric pain is improving with no episodes of N/V today. Denies fever, wt loss, CP, SOB, dysphagia, odynophagia, diarrhea, constipation, or signs of bleeding such as hematemesis, melena, or hematochezia. No NSAID use or hx of PUD. No previous EGD. Past History Past Medical History: diabetes Past Surgical History: No surgical history Social history: single, smoking, other (marijuana use, cocaine use (none x 1 month)). denies: alcohol abuse Family history: diabetes, hypertension Medications and Allergies Allergies Allergy/AdvReac Type Severity Reaction Status Date / Time No Known Allergies Allergy Verified 07/08/13 04:49 Home Medications Medication Instructions Recorded Confirmed Last Taken Type No Known Home Medications [No 06/28/17 06/28/17 Unknown History Reported Home Medications] Active Meds: Active Medications Acetaminophen (Tylenol) 325 mg PO Q6H PRN PRN Reason: Pain, Mild (1-3) Dextrose (D50w (25gm) Syringe) 50 ml IV PRN PRN PRN Reason: Hypoglycemia Famotidine (Pepcid) 20 mg IV BID [facility] Heparin Sodium (Porcine) (Heparin) 5,000 unit SUB-Q Q12HR [facility] Sodium Chloride (Nacl 0.9% 1000 Ml) 1,000 mls @ 100 mls/hr IV DIRECT [facility] Insulin Human Lispro (Humalog) 0 unit SUB-Q Q6HR [facility]; Protocol Last Admin: 06/28/17 11:58 Dose: Not Given Metoclopramide HCl (Reglan) 10 mg IV Q8H PRN PRN Reason: Nausea And Vomiting Ondansetron HCl (Zofran) 4 mg IV Q4H PRN PRN Reason: N/V unrelieved by Reglan Review of Systems - Review of Systems All systems: negative Gastrointestinal: abdominal pain (epigastric pain), nausea, vomiting Exam - Constitutional Vital Signs: Temp Pulse Resp BP Pulse Ox 97.6 F 69 18 122/79 96 06/28/17 09:00 06/28/17 10:00 06/28/17 10:00 06/28/17 10:00 06/28/17 10:00 General appearance: no acute distress - EENT Eyes: PERRL, EOM intact ENT: hearing intact - Respiratory Respiratory: bilateral: CTA - Cardiovascular Rhythm: regular Heart Sounds: Present: S1 & S2 - Gastrointestinal General gastrointestinal: Present: soft, tender (epigastric), non-distended, normal bowel sounds - Neurologic Neurological: alert and oriented x3 - Labs CBC & Chem 7: 06/27/17 22:30 06/27/17 22:30 Lab Results: Laboratory Results - last 24 hr 06/27/17 06/27/17 06/27/17 22:19 22:30 22:30 WBC 12.8 H RBC 4.84 Hgb 15.4 H Hct 46.6 H MCV 96 H MCH 32 MCHC 33 RDW 14.0 Plt Count 223 Lymph % (Auto) 6.2 L [place] % (Auto) 4.0 Eos % (Auto) 0.0 Baso % (Auto) 0.2 Lymph # 0.8 L [place] # 0.5 Eos # 0.0 Baso # 0.0 Seg Neutrophils % 89.6 H Seg Neutrophils # 11.5 H Sodium 141 Potassium 4.0 Chloride 100.0 Carbon Dioxide 22 Anion Gap 23 BUN 8 L Creatinine 0.6 L Estimated GFR > 60 BUN/Creatinine Ratio 13 Glucose 134 H POC Glucose 124 H Lactic Acid Calcium 9.3 Magnesium Total Bilirubin 0.50 AST 28 ALT 21 Alkaline Phosphatase 106 Total Creatine Kinase Total Protein 7.7 Albumin 4.7 Albumin/Globulin Ratio 1.6 Lipase Urine Color Urine Turbidity Urine pH Ur Specific [place] Urine Protein Urine Glucose (UA) Urine Ketones Urine Blood Urine Nitrite Urine Bilirubin Urine Urobilinogen Ur Leukocyte Esterase Urine WBC (Auto) Urine RBC (Auto) Urine Mucus Urine Opiates Screen Urine Methadone Screen Ur Barbiturates Screen Ur Phencyclidine Scrn Ur Amphetamines Screen U Benzodiazepines Scrn Urine Cocaine Screen U Marijuana (THC) Screen Drugs of Abuse Note 06/28/17 06/28/17 06/28/17 01:30 01:30 07:40 WBC RBC Hgb Hct MCV MCH MCHC RDW Plt Count Lymph % (Auto) [place] % (Auto) Eos % (Auto) Baso % (Auto) Lymph # [place] # Eos # Baso # Seg Neutrophils % Seg Neutrophils # Sodium Potassium Chloride Carbon Dioxide Anion Gap BUN Creatinine Estimated GFR BUN/Creatinine Ratio Glucose POC Glucose Lactic Acid 3.60 H* Calcium Magnesium 2.10 Total Bilirubin AST ALT Alkaline Phosphatase Total Creatine Kinase 124 Total Protein Albumin Albumin/Globulin Ratio Lipase 14 Urine Color Urine Turbidity Urine pH Ur Specific [place] Urine Protein Urine Glucose (UA) Urine Ketones Urine Blood Urine Nitrite Urine Bilirubin Urine Urobilinogen Ur Leukocyte Esterase Urine WBC (Auto) Urine RBC (Auto) Urine Mucus Urine Opiates Screen Urine Methadone Screen Ur Barbiturates Screen Ur Phencyclidine Scrn Ur Amphetamines Screen U Benzodiazepines Scrn Urine Cocaine Screen U Marijuana (THC) Screen Drugs of Abuse Note 06/28/17 06/28/17 06/28/17 08:42 08:42 09:38 WBC RBC Hgb Hct MCV MCH MCHC RDW Plt Count Lymph % (Auto) [place] % (Auto) Eos % (Auto) Baso % (Auto) Lymph # [place] # Eos # Baso # Seg Neutrophils % Seg Neutrophils # Sodium Potassium Chloride Carbon Dioxide Anion Gap BUN Creatinine Estimated GFR BUN/Creatinine Ratio Glucose POC Glucose Lactic Acid 1.20 Calcium Magnesium Total Bilirubin AST ALT Alkaline Phosphatase Total Creatine Kinase Total Protein Albumin Albumin/Globulin Ratio Lipase Urine Color Straw Urine Turbidity Clear Urine pH 7.0 Ur Specific [place] 1.038 H Urine Protein <15 mg/dl Urine Glucose (UA) Neg Urine Ketones Neg Urine Blood Neg Urine Nitrite Neg Urine Bilirubin Neg Urine Urobilinogen < 2.0 Ur Leukocyte Esterase Neg Urine WBC (Auto) < 1.0 Urine RBC (Auto) < 1.0 Urine Mucus Few Urine Opiates Screen Presumptive negative Urine Methadone Screen Presumptive negative Ur Barbiturates Screen Presumptive negative Ur Phencyclidine Scrn Presumptive negative Ur Amphetamines Screen Presumptive negative U Benzodiazepines Scrn Presumptive negative Urine Cocaine Screen Presumptive negative U Marijuana (THC) Screen Presumptive positive Drugs of Abuse Note Disclamer 06/28/17 11:56 WBC RBC Hgb Hct MCV MCH MCHC RDW Plt Count Lymph % (Auto) [place] % (Auto) Eos % (Auto) Baso % (Auto) Lymph # [place] # Eos # Baso # Seg Neutrophils % Seg Neutrophils # Sodium Potassium Chloride Carbon Dioxide Anion Gap BUN Creatinine Estimated GFR BUN/Creatinine Ratio Glucose POC Glucose 116 H Lactic Acid Calcium Magnesium Total Bilirubin AST ALT Alkaline Phosphatase Total Creatine Kinase Total Protein Albumin Albumin/Globulin Ratio Lipase Urine Color Urine Turbidity Urine pH Ur Specific [place] Urine Protein Urine Glucose (UA) Urine Ketones Urine Blood Urine Nitrite Urine Bilirubin Urine Urobilinogen Ur Leukocyte Esterase Urine WBC (Auto) Urine RBC (Auto) Urine Mucus Urine Opiates Screen Urine Methadone Screen Ur Barbiturates Screen Ur Phencyclidine Scrn Ur Amphetamines Screen U Benzodiazepines Scrn Urine Cocaine Screen U Marijuana (THC) Screen Drugs of Abuse Note Assessment and Plan 1.N/V 2.epigastric pain -Lipase and LFTs-WNL -abd CT negative for any acute process -clinically pt's abd pain and N/V are now improving -etiology unclear-possibly due to poor glycemic control vs ulcer vs substance abuse (daily marijuana use) vs other -will consider EGD based on progress -start on daily PPI -clear liquids today -continue supportive care -will follow
[2017-06-28] MEDS ORDERED: PEPCID IV SCH (14:00)
[2017-06-28] MEDS: NACL 0.9% 1000 ML 1,000 ML IV SCH (14:05)
[2017-06-28] MEDS: PEPCID IV SCH (22:57)
[2017-06-29] MEDS: NACL 0.9% 1000 ML 1,000 ML IV SCH (02:57)
[2017-06-29] MEDS: ZOFRAN IV PRN ×3 (05:47→22:02)
[2017-06-29] MEDS: HumaLOG SUB-Q SCH ×4 (06:16→18:00)
[2017-06-29] MEDS: PEPCID IV SCH (09:29)
--- NOTE | 2017-06-29 10:35 | Progress Note ---
Assessment and Plan 1. N/V, epigastric pain - most likely due to marijuana-induced hyperemesis, though PUD cannot be excluded, or other processes. - will give pt trial of Ativan to see if it helps, in addition to PPI - if not, EGD. Subjective Date of service: 06/29/17 Interval history: Pt complains of ongoing epigastric pain and N/V. Of note, pt feels better if in hot water. Objective - Constitutional Vitals: Vital Signs - 12hr 06/29/17 06/29/17 06/29/17 05:13 05:23 07:32 Temperature 99.2 F 98.2 F Pulse Rate 88 56 L 60 Respiratory 18 18 20 Rate Blood Pressure 133/73 116/73 126/77 O2 Sat by Pulse 100 100 100 Oximetry General appearance: Present: no acute distress - EENT Eyes: PERRL, EOM intact ENT: hearing intact - Respiratory Respiratory effort: normal - Gastrointestinal General gastrointestinal: Present: soft, tender (mild, epigastric) - Labs CBC & Chem 7: 06/27/17 22:30 06/27/17 22:30 Labs: Abnormal lab results 06/28/17 Range/Units 11:56 POC Glucose 116 H (70-105)
[2017-06-29] MEDS ORDERED: ATIVAN IV PRN (10:39)
[2017-06-29] MEDS: PROTONIX PO SCH (11:51)
[2017-06-29] MEDS ORDERED: PNEUMOVAX 23 IM ONE (12:00)
[2017-06-29] MEDS ORDERED: Fluarix Quad 2017-2018(36 MOS+ IM ONE (12:00)
[2017-06-29] MEDS ORDERED: REGLAN IV PRN (12:00)
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
--- NOTE | 2017-06-29 15:21 | Progress Note ---
Assessment and Plan - Patient Problems (1) Intractable abdominal pain Current Visit: Yes Status: Acute Plan to address problem: Patient is stable. Abdominal pain has resolved. Nausea is much better today. He reports that he is drinking well. Continue conservative care and advance diet as tolerated. No surgical intervention is needed at this time. Please call if there any questions or any concerns. Time=15min Subjective Date of service: 06/29/17 Patient Reports: Positive: feels better, pain is less, nausea (mild now. Able to drink lots of water) Objective Vital Signs - 12hr 06/29/17 06/29/17 06/29/17 05:13 05:23 07:32 Temperature 99.2 F 98.2 F Pulse Rate 88 56 L 60 Respiratory 18 18 20 Rate Blood Pressure 133/73 116/73 126/77 O2 Sat by Pulse 100 100 100 Oximetry - General physical appearance no distress, no pain - Eyes normal occular movement - Respiratory normal expansion, normal respiratory effort - Abdomen soft, not tender, bowel sounds normal, not distended, not rebound, not guarding , not rigid - Labs 06/27/17 22:30 06/27/17 22:30
[2017-06-30] MEDS: HumaLOG SUB-Q SCH ×3 (06:13→12:00)
[2017-06-30 07:00] LABS: Hematocrit 44.4 % (35.5-45.6); Hemoglobin 15.1 gm/dl (11.8-15.2); Mean Corpuscular HGB Conc 34 % (32-34); Mean Corpuscular Hemoglobin 32 pg (28-32); Mean Corpuscular Volume 94 fl (84-94); Platelet Count 216 K/mm3 (140-440); Red Blood Count 4.74 M/mm3 (3.65-5.03); Red Cell Distribution Width 13.9 % (13.2-15.2)
[2017-06-30 07:21] LABS: BUN/Creatinine Ratio 23; Blood Urea Nitrogen 14 mg/dL (9-20); Calcium 9.5 mg/dL (8.4-10.2); Hemolysis Index 4
[2017-06-30] MEDS: NACL 0.9% 1000 ML 1,000 ML IV SCH (08:09)
[2017-06-30] MEDS ORDERED: POTASSIUM CHLORIDE PO ONE (09:23)
[2017-06-30] MEDS: PROTONIX PO SCH (09:56)
[2017-06-30] MEDS ORDERED: HEPARIN SUB-Q SCH (11:00)
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
--- NOTE | 2017-06-30 13:26 | Progress Note ---
Assessment and Plan 1. N/V - improved. Likely due to marijuana. Doing well. - discussed stopping marijuana - can give small amount of Ativan to go home in case of further nausea - can f/u as outpatient as needed. Subjective Date of service: 06/30/17 Interval history: Pt feels much better, smiling. Tolerating clears well, and has eaten some as well. Wants to go home. Objective - Constitutional Vitals: Vital Signs - 12hr 06/30/17 07:29 Temperature 97.8 F Pulse Rate 47 L Respiratory 20 Rate Blood Pressure 139/89 O2 Sat by Pulse 100 Oximetry General appearance: Present: no acute distress - EENT Eyes: PERRL, EOM intact ENT: hearing intact - Respiratory Respiratory effort: normal - Gastrointestinal General gastrointestinal: Present: soft, non-tender - Labs CBC & Chem 7: 06/30/17 06:28 06/30/17 06:28 Labs: Abnormal lab results 06/29/17 06/30/17 Range/Units 12:23 06:28 Sodium 136 L (137-145) mmol/L Potassium 3.3 L (3.6-5.0) mmol/L Chloride 96.9 L (98-107) mmol/L Creatinine 0.6 L (0.8-1.5) mg/dL POC Glucose 128 H (70-105)
[2017-06-30 17:30] VITALS: BP 138/90
== END 2017-06-30 17:45 | disposition home or self-care (01) | DRG 74 ==
LOC: ED 19:19 → 3A 06-28 10:01
PROVIDERS: ADMIT Internal Medicine; ATTEND Internal Medicine
PROC: 3E0234Z Introduction of Serum, Toxoid and Vaccine into Muscle, Percutaneous Approach (ICD-10-PCS; principal; 2017-06-29)
DX: E11.43 Type 2 diabetes mellitus with diabetic autonomic (poly)neuropathy (principal); E87.2 Acidosis; E44.0 Moderate protein-calorie malnutrition; Z68.1 Body mass index [BMI] 19.9 or less, adult; K31.84 Gastroparesis; F17.200 Nicotine dependence, unspecified, uncomplicated; K52.9 Noninfective gastroenteritis and colitis, unspecified; D72.829 Elevated white blood cell count, unspecified; F14.10 Cocaine abuse, uncomplicated; E86.0 Dehydration; Z23 Encounter for immunization
CPT/HCPCS: 36415; 74177; 80048; 80053; 80307; 81001; 82140; 82550; 82962; 83690; 83735; 85025; 85027; 90686; 90732; 96361; 96374; 96375; 99406; J1200; J1644; J2060; J2270; J2405; J2765; J7030; Q9967

== ENCOUNTER 2020-01-31 13:10 | Emergency (ER) | payer SELFPAY ==
[2020-01-31] MEDS ORDERED: MORPHINE 4 MG/1 ML INJ IV ONE (13:50)
[2020-01-31] MEDS ORDERED: SODIUM CHLORIDE 0.9% 1000 ML 1,000 ML IV ONE ×3 (13:50→16:33)
[2020-01-31] MEDS ORDERED: FAMOTIDINE 20 MG/2 ML INJ IV ONE (13:50)
[2020-01-31] MEDS ORDERED: ONDANSETRON 4 MG/2 ML INJ IV ONE (13:50)
[2020-01-31] MEDS ORDERED: diphenhydrAMINE 50 MG/ML VIAL IV ONE (14:12)
[2020-01-31] MEDS ORDERED: METOCLOPRAMIDE 10 MG/2 ML INJ IV ONE (14:12)
[2020-01-31 14:20] LABS: Basophils # (Auto) 0.1 K/mm3 (0.0-0.1); Basophils % (Auto) 0.9 % (0.0-1.8); Eosinophils % (Auto) 0.4 % (0.0-4.3); Hematocrit 41.8 % (35.5-45.6); Hemoglobin 13.7 gm/dl (11.8-15.2); Lymphocytes % (Auto) 9.1 % (13.4-35.0); Mean Corpuscular HGB Conc 33 % (32-34); Mean Corpuscular Volume 96 fl (84-94); Monocytes # (Auto) 0.5 K/mm3 (0.0-0.8); Monocytes % (Auto) 4.8 % (0.0-7.3); Platelet Count 261 K/mm3 (140-440); Red Blood Count 4.34 M/mm3 (3.65-5.03); Red Cell Distribution Width 13.1 % (13.2-15.2)
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
[2020-01-31 14:41] LABS: Alanine Aminotransferase 14 units/L (7-56); Albumin 4.4 g/dL (3.9-5); BUN/Creatinine Ratio 9; Blood Urea Nitrogen 6 mg/dL (9-20); Calcium 8.8 mg/dL (8.4-10.2); Hemolysis Index 4
[2020-01-31 15:16] LABS: Free T4 (Free Thyroxine) 1.05 ng/dL (0.76-1.46)
--- NOTE | 2020-01-31 15:50 | Cat Scan Report ---
CT abdomen pelvis w con INDICATION: Nausea, vomiting, and abdominal pain.. COMPARISON: None TECHNIQUE: Abdominal and pelvic CT exam performed. All CT scans at this location are performed using CT dose reduction for ALARA by means of automated exposure control. FINDINGS: CT ABDOMEN and PELVIS: Lung Bases: No significant abnormality. Liver: Periportal edema is present. Biliary: No significant abnormality. Spleen: No significant abnormality. Pancreas: No significant abnormality. Adrenals: No significant abnormality. Kidneys: No significant abnormality. Lymphatics: No lymphadenopathy. Vasculature: No significant abnormality. Bowel: No significant abnormality. Normal appendix. Pelvis: No significant abnormality. Osseous Structures: No aggressive osseous lesion. Additional Findings: None IMPRESSION: 1. Periportal edema is present which is nonspecific but can be seen in the setting of hepatitis. Gage stubbs clinically. Signer Name: Ervin Farias MD Signed: 01/31/2020 3:45 PM Workstation Name: [id number]
[2020-01-31 16:47] LABS: Hepatitis B Surface Antigen Non-Reactive (Negative); Hepatitis C Virus Antibody Non-Reactive (NonReactive)
[2020-01-31] MEDS ORDERED: HYDROmorphone 1 MG/1 ML INJ IV ONE (16:47)
[2020-01-31 17:04] LABS: Amphetamine Screen,Urine Negative; Benzodiazepines Screen,Urine Negative; Methadone Screen,Urine Negative; Opiate Screen,Urine Negative
[2020-01-31 17:10] LABS: Bilirubin,Urine NEG (Negative); Blood,Urine NEG (Negative); Color,Urine Straw (Yellow); Mucus,Urine FEW /HPF; Protein,Urine <15 mg/dL mg/dL (Negative); Urobilinogen,Urine < 2.0 mg/dL (<2.0); WBC,Urine < 1.0 /HPF (0.0-6.0)
[2020-01-31 17:22] VITALS: BP 101/50
[2020-01-31 17:29] LABS: Cannabinoid Screen,Urine Positive; Cocaine Screen,Urine Positive
== END 2020-01-31 19:03 | disposition home or self-care (01) ==
LOC: ED 13:10
DX: R10.84 Generalized abdominal pain (principal); R11.2 Nausea with vomiting, unspecified; F12.10 Cannabis abuse, uncomplicated; F14.10 Cocaine abuse, uncomplicated; Z79.899 Other long term (current) drug therapy
CPT/HCPCS: 36415; 74177; 80053; 80074; 80307; 81001; 82140; 82805; 82962; 83690; 83735; 84439; 84443; 85025; 93005; 96361; 96374; 96375; 99284; J1170; J1200; J2270; J2405; J2765; J7030; Q9967

== ENCOUNTER 2020-05-17 20:49 | Emergency (ER) | payer SELFPAY ==
[2020-05-17] MEDS ORDERED: SODIUM CHLORIDE 0.9% 1000 ML 1,000 ML IV ONE (20:57)
[2020-05-17] MEDS ORDERED: ONDANSETRON 4 MG/2 ML INJ IV ONE (20:58)
--- NOTE | 2020-05-17 21:00 | Event Note ---
ED Screening Note Date of service: 05/17/20 Time: 20:58 ED Screening Note: pt is a 30 y/o aam with hx of DM II who presents for abd pain n/v/d x 2 days , presents via ambulances states pain is 6/10 sharp aching, last po intake this am. with n/v This initial assessment/diagnostic orders/clinical plan/treatment(s) is/are subject to change based on patients health status, clinical progression and re- assessment by fellow clinical providers in the ED. Further treatment and workup at subsequent clinical providers discretion. Patient/guardian urged not to elope from the ED as their condition may be serious if not clinically assessed and managed. Initial orders include: UA, CMP, CBC, Lipase, Jose Carlos PH,
[2020-05-17 21:03] VITALS: BP 130/50
[2020-05-17 21:30] LABS: Hemoglobin 15.4 gm/dl (11.8-15.2); Mean Corpuscular HGB Conc 33 % (32-34); Mean Corpuscular Volume 98 fl (84-94); Platelet Count 287 K/mm3 (140-440); Red Blood Count 4.71 M/mm3 (3.65-5.03); Red Cell Distribution Width 13.9 % (13.2-15.2)
[2020-05-17 21:52] LABS: Alanine Aminotransferase 28 units/L (7-56); Blood Urea Nitrogen 9 mg/dL (9-20); Calcium 9.7 mg/dL (8.4-10.2); Hemolysis Index 42
[2020-05-17 21:57] LABS: BUN/Creatinine Ratio 13
[2020-05-17 23:04] LABS: Platelet Estimate Consistent w Auto; RBC Morphology Normal; Total Cells Counted 100
== END 2020-05-18 00:45 | disposition left against medical advice (07) ==
LOC: ED 20:49
DX: R10.9 Unspecified abdominal pain (principal); R42 Dizziness and giddiness; R53.1 Weakness; Z53.21 Procedure and treatment not carried out due to patient leaving prior to being seen by health care provider
CPT/HCPCS: 36415; 80053; 82805; 83690; 85007; 85025

== ENCOUNTER 2020-05-18 22:40 | Emergency (ER) | payer SELFPAY ==
[2020-05-18] MEDS ORDERED: ONDANSETRON 4 MG/2 ML INJ IV ONE (23:03)
[2020-05-18] MEDS ORDERED: PANTOPRAZOLE 40 MG INJ IV ONE (23:03)
[2020-05-18] MEDS ORDERED: SODIUM CHLORIDE 0.9% 1000 ML 1,000 ML IV ONE (23:03)
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
[2020-05-18 23:51] LABS: Amphetamine Screen,Urine PRESUMPTIVE NEGATIVE; Benzodiazepines Screen,Urine PRESUMPTIVE NEGATIVE; Cannabinoid Screen,Urine PRESUMPTIVE POSITIVE; Cocaine Screen,Urine PRESUMPTIVE POSITIVE; Methadone Screen,Urine PRESUMPTIVE NEGATIVE; Opiate Screen,Urine PRESUMPTIVE NEGATIVE
[2020-05-18 23:52] LABS: Basophils % (Auto) 0.3 % (0.0-1.8); Hematocrit 45.9 % (35.5-45.6); Hemoglobin 15.5 gm/dl (11.8-15.2); Lymphocytes # (Auto) 0.6 K/mm3 (1.2-5.4); Lymphocytes % (Auto) 5.3 % (13.4-35.0); Mean Corpuscular HGB Conc 34 % (32-34); Mean Corpuscular Volume 96 fl (84-94); Monocytes # (Auto) 1.3 K/mm3 (0.0-0.8); Monocytes % (Auto) 11.3 % (0.0-7.3); Platelet Count 287 K/mm3 (140-440); Red Blood Count 4.79 M/mm3 (3.65-5.03); Red Cell Distribution Width 13.9 % (13.2-15.2)
[2020-05-19 00:01] LABS: Mucus,Urine 2+ /HPF
[2020-05-19 00:05] LABS: Alanine Aminotransferase 23 units/L (7-56); Albumin 5.7 g/dL (3.9-5); BUN/Creatinine Ratio 15; Blood Urea Nitrogen 12 mg/dL (9-20); Calcium 10.7 mg/dL (8.4-10.2); Hemolysis Index 10
[2020-05-19 00:09] LABS: Bilirubin,Urine NEG (Negative); Blood,Urine NEG (Negative); Color,Urine Yellow (Yellow); Urobilinogen,Urine < 2.0 mg/dL (<2.0)
[2020-05-19 00:56] VITALS: BP 126/67
== END 2020-05-19 01:40 | disposition home or self-care (01) ==
LOC: ED 22:40
DX: R10.10 Upper abdominal pain, unspecified (principal); R11.2 Nausea with vomiting, unspecified; F14.10 Cocaine abuse, uncomplicated; F12.10 Cannabis abuse, uncomplicated; F13.10 Sedative, hypnotic or anxiolytic abuse, uncomplicated; E11.9 Type 2 diabetes mellitus without complications; F17.200 Nicotine dependence, unspecified, uncomplicated; Z79.899 Other long term (current) drug therapy
CPT/HCPCS: 36415; 80053; 80307; 81001; 82805; 82962; 83690; 85025; 96361; 96374; 96375; 99283; C9113; J2405; J7030; 80320; G0480

== ENCOUNTER 2021-07-03 06:57 | Emergency (ER) | payer SELFPAY ==
[2021-07-03 07:32] VITALS: BP 95/54
[2021-07-03] MEDS ORDERED: SODIUM CHLORIDE 0.9% 1000 ML 1,000 ML IV ONE ×2 (08:36→10:26)
[2021-07-03] MEDS ORDERED: KETOROLAC 30 MG/1 ML INJ IV ONE (08:38)
[2021-07-03] MEDS ORDERED: ONDANSETRON 4 MG/2 ML INJ IV ONE (08:38)
[2021-07-03 09:13] LABS: Hematocrit 51.3 % (35.5-45.6); Hemoglobin 16.6 gm/dl (11.8-15.2); Mean Corpuscular HGB Conc 32 % (32-34); Mean Corpuscular Volume 98 fl (84-94); Red Blood Count 5.21 M/mm3 (3.65-5.03); Red Cell Distribution Width 13.8 % (13.2-15.2)
[2021-07-03 10:08] LABS: Alanine Aminotransferase 11 units/L (7-56); Albumin 5.2 g/dL (3.9-5); BUN/Creatinine Ratio 19; Blood Urea Nitrogen 17 mg/dL (9-20); Calcium 10.2 mg/dL (8.4-10.2); Hemolysis Index 7
[2021-07-03 10:20] LABS: Bilirubin,Direct < 0.2 mg/dL (0-0.2)
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
[2021-07-03 12:27] LABS: Platelet Count 244 K/mm3 (140-440)
[2021-07-03 12:40] LABS: Bilirubin,Urine SM (Negative); Blood,Urine NEG (Negative); Color,Urine Amber (Yellow); Hyaline Casts,Urine 3 /LPF; Mucus,Urine 3+ /HPF
== END 2021-07-03 13:30 | disposition home or self-care (01) ==
LOC: ED 06:57
DX: R10.84 Generalized abdominal pain (principal); R11.10 Vomiting, unspecified; E11.9 Type 2 diabetes mellitus without complications; F17.200 Nicotine dependence, unspecified, uncomplicated; F14.90 Cocaine use, unspecified, uncomplicated; F12.90 Cannabis use, unspecified, uncomplicated; Z79.4 Long term (current) use of insulin; Z79.899 Other long term (current) drug therapy
CPT/HCPCS: 36415; 80048; 80076; 81001; 82010; 82805; 82962; 83690; 85025; 96361; 96374; 96375; 99284; J1885; J2405; J7030